=== PATIENT | male | born 1975 | race Caucasian/White ===

== ENCOUNTER 2021-07-13 19:06 | Emergency (ER) | payer BC ==
[2021-07-13 20:51] VITALS: TEMP 98.3
--- NOTE | 2021-07-13 21:41 | XR ---
PROCEDURE: XR wrist complete RT - 3V DATE AND TIME: 07/13/2021 9:11 PM CLINICAL INDICATION: fall on extremity, pain TECHNIQUE: Department protocol COMPARISON: None FINDINGS: There is a distal radius fracture/dislocation, with nearly one shaft width volar displacement of the distal moiety. The distal radius fracture is comminuted and intra-articular, involving both the radio carpal joint and the DRUJ. Nondisplaced ulnar styloid fracture also noted. No other fractures are evident. IMPRESSION: Injuries as above.
--- NOTE | 2021-07-13 21:44 | XR ---
PROCEDURE: XR forearm RT - 2V DATE AND TIME: 07/13/2021 9:11 PM CLINICAL INDICATION: PHH; fall on extremity, pain TECHNIQUE: Department protocol COMPARISON: None FINDINGS: Imaging was obtained from the elbow to the wrist. There is a distal radius fracture/dislocation, with one shaft width volar displacement of the distal moiety, and with nearly 2 cm override. The distal radius fracture is comminuted and intra-articular, involving both the radiocarpal joint and the DRUJ. Nondisplaced ulnar styloid fracture also noted. No other fractures are evident. IMPRESSION: Injuries as above.
[2021-07-13] MEDS ORDERED: PROPOFOL 10 MG/ML 20 ML VIAL IV ONE ×2 (22:19→23:32)
[2021-07-13] MEDS ORDERED: ONDANSETRON 4 MG/2 ML VIAL IVP STA (22:22)
[2021-07-13] MEDS ORDERED: BACITRACIN OINT 1 EACH PACKET TOPICAL ONE (22:22)
[2021-07-13] MEDS ORDERED: MORPHINE SULFATE 4 MG/ML SYRINGE IVP STA (22:22)
[2021-07-13] MEDS ORDERED: DIPH,PERTUS(ACELL)TETVAC-LF 0.5 ML VIAL IM ONE (22:22)
--- NOTE | 2021-07-13 23:39 | ED ---
Fall HPI <Melvin Peña - Last Filed: 07/13/21 23:40> - General Source: patient Mode of arrival: ambulatory <Phoebe Flower - Last Filed: 07/14/21 03:01> - General Chief Complaint: Fall Stated Complaint: Wrist Injury Time Seen by Provider: 07/13/21 22:01 - History of Present Illness Initial Comments: 45 year-old male patient presents to the emergency department for evaluation of right wrist pain. Patient states he was playing pickle ball when he tripped and fell onto his arm. States injury occurred around 5pm. He denies hitting his head or losing consciousness. Denies any neck or back pain. States his wrist became swollen immediately. He denies any numbness or tingling to the hand. Denies elbow or shoulder pain. Denies taking any medication for pain. Patient denies any headache, chest pain, shortness of breath, dizziness, weakness, abdominal pain, nausea, vomiting, or difficulties with bowel movements or urination. (Phoebe Flower) - Related Data Previous Rx's Medication Instructions Recorded Acetaminophen-Codeine 300-30mg 1 tab PO Q6H PRN #12 tablet 07/14/21 [Tylenol #3] Allergies Allergy/AdvReac Type Severity Reaction Status Date / Time No Known Allergies Allergy Verified 07/13/21 20:51 Review of Systems ROS Other: All systems not noted in ROS Statement are negative. <Melvin Peña - Last Filed: 07/13/21 23:40> ROS Other: All systems not noted in ROS Statement are negative. <Phoebe Flower - Last Filed: 07/14/21 03:01> ROS Statement: Those systems with pertinent positive or pertinent negative responses have been documented in the HPI. Past Medical History Past Medical History: No Reported History History of Any Multi-Drug Resistant Organisms: None Reported Past Surgical History: No Surgical Hx Reported Past Psychological History: No Psychological Hx Reported Smoking Status: Never smoker Past Alcohol Use History: None Reported Past Drug Use History: None Reported <Phoebe Flower - Last Filed: 07/14/21 03:01> General Exam General appearance: alert, in no apparent distress, other (This is a well- developed, well-nourished adult male patient in no acute distress. Vital signs upon presentation are temperature 98.3F, pulse 79, respirations 18, blood pressure 192/97, pulse ox 98% on room air.) Neck exam: Present: normal inspection, full ROM, other (Nontender, no step-off, no deformity to firm midline palpation of the posterior cervical spine. Full range of motion without pain or limitation.). Absent: tenderness, meningismus, lymphadenopathy Respiratory exam: Present: normal lung sounds bilaterally. Absent: respiratory distress, wheezes, rales, rhonchi, stridor Cardiovascular Exam: Present: regular rate, normal rhythm, normal heart sounds. Absent: systolic murmur, diastolic murmur, rubs, gallop, clicks GI/Abdominal exam: Present: soft, normal bowel sounds. Absent: distended, tenderness, guarding, rebound, rigid Extremities exam: Present: full ROM, tenderness (distal radius and ulna), normal capillary refill, other (Soft tissue swelling right wrist. Superficial abrasion right dorsal wrist over ulnar region. Skin is otherwise pink, warm, dry. Cap refill less than 3 seconds. Radial pulses 2+.). Absent: normal inspection, pedal edema, joint swelling, calf tenderness Back exam: Present: normal inspection, other (Nontender, no step-off, no deformity to firm midline palpation of the thoracic and lumbar vertebrae. Full range of motion without pain or limitation.). Absent: vertebral tenderness Neurological exam: Present: alert, oriented X3, CN II-XII intact Psychiatric exam: Present: normal affect, normal mood Skin exam: Present: warm, dry, intact, normal color. Absent: rash <Phoebe Flower M - Last Filed: 07/14/21 03:01> Course Vital Signs 07/13/21 07/13/21 07/13/21 20:48 22:59 23:25 Temperature 98.3 F Pulse Rate 79 89 96 Respiratory 18 18 18 Rate Blood Pressure 192/97 153/84 157/85 O2 Sat by Pulse 98 98 97 Oximetry 07/13/21 07/13/21 07/13/21 23:30 23:32 23:35 Temperature Pulse Rate 91 89 90 Respiratory 16 18 16 Rate Blood Pressure 148/88 151/83 144/92 O2 Sat by Pulse 100 100 100 Oximetry 07/13/21 07/13/21 07/14/21 23:38 23:43 00:00 Temperature Pulse Rate 90 92 91 Respiratory 16 20 16 Rate Blood Pressure 145/98 148/85 138/79 O2 Sat by Pulse 100 95 95 Oximetry 07/14/21 07/14/21 07/14/21 00:15 00:30 00:48 Temperature Pulse Rate 89 90 81 Respiratory 18 18 18 Rate Blood Pressure 150/101 153/76 150/85 O2 Sat by Pulse 95 95 97 Oximetry Procedures - Procedural Sedation Procedural Sedation Start Time: 23:31 Procedural Sedation Stop Time: 23:40 ASA Class: I Mallampati Airway Score: 3 Preparation: cardiac specialist applied, pulse oximeter, capnometry used, supplemental O2 applied, reversal agents at bedside, suction/airway equipment at bedside, IV secured IV Propofol Dose (mgs): 200 Complications: none Patient Tolerated Procedure: well <Melvin Peña - Last Filed: 07/13/21 23:40> - [place] Protocol (Time Out) Procedure Performed:: R wrist closed reduction with concious sedation Performing Provider: Melvin Peña Nurse: Sylvia Dale Patient Identification (2 identifiers required): Chart, Verbal, Arm Band, Name, Birthdate Patient/Legal Fire Prevention Officer has Confirmed: Identity, Site, Procedure, Consent Site: R wrist Site Marked: Yes Site Verified With Patient/Guardian: Yes Final Confirmation: Procedure, Site, Patient Position, Confirmed w/Provider - Orthopedic Fracture Reduction Fracture #1 Consent Obtained: written consent Side: right Fracture Reduction Location: radius, ulna Analgesia: procedural sedation Technique: direct manipulation, traction/counter-traction Post Reduction X-rays Demonstrate: other (improved alignment) Post-Reduction Neuro Exam: intact, no change Post-Reduction Vascular Exam: intact, no change Splint Applied: Yes Patient Tolerated Procedure: well, no complications - Orthopedic Splinting/Casting Injury #1 Side: right Upper Extremity Injury Location: wrist Upper Extremity Immobilizer: sugar tong splint, Cb wrap, synthetic pre-padded splint - Procedural Sedation Indications: fracture/dislocation reduction <Phoebe Flower - Last Filed: 07/14/21 03:01> - Orthopedic Fracture Reduction Fracture #1 Additional Comments: Procedure performed by my attending Dr. Peña. (Phoebe Flower) - Orthopedic Splinting/Casting Injury #1 Additional Comments: Neurovascular status intact after splint application. Skin to the hand is pink, warm, dry. Cap refill less than 3 seconds. Radial pulses 2+. Patient denies numbness or tingling. (Phoebe Flower) - Procedural Sedation Additional Comments: Total of 200 mg propofol used initially 103 mg followed by 70 mg patient did tolerate this well he was awake alert oriented 3, final evaluation (Melvin Peña) Medical Decision Making - Radiology Data Radiology results: report reviewed, image reviewed <Phoebe Flower - Last Filed: 07/14/21 03:01> - Medical Decision Making 45-year-old male patient presents to the emergency department today for evaluation of right wrist injury. Physical examination did reveal significant soft tissue swelling, somewhat deformed right wrist. There was an abrasion noted to the ulnar aspect, this is superficial and not an open fracture. X-rays were obtained and did reveal a fracture dislocation of the right distal radius and ulna. Closed reduction with conscious sedation was performed by seth easley ttinkki Peña. Splint was applied. Patient did arouse from anesthesia without any trouble. He is alert and oriented. Be discharged follow-up with hair specialist for further evaluation as soon as possible. Return parameters were discussed in detail. He verbalizes understanding and agrees this plan. Attending is Dr. Peña. (Phoebe Flower) - Radiology Data 3 views of the right wrist are obtained. Report was reviewed in its entirety. Impression by Dr. Isadora Turner shows distal radius fracture dislocation, radius fracture is comminuted and intra-articular. Nondisplaced ulnar styloid fracture. 2 views of the right forearm are obtained. Report was reviewed in its entirety. Impression by Dr. Isadora Turner redemonstrates wrist fractures. Right wrist x-rays obtained. For postreduction purposes, there is improved anatomic position of the fracture fragments compared to initial exam. (Phoebe Flower) Disposition <Melvin Peña - Last Filed: 07/13/21 23:40> Is patient prescribed a controlled substance at d/c from ED?: No Time of Disposition: 00:36 <Phoebe Flower - Last Filed: 07/14/21 03:01> Clinical Impression: Closed fracture of right distal radius and ulna Disposition: HOME SELF-CARE Condition: Good Instructions (If sedation given, give patient instructions): Wrist Fracture in Adults (ED) Additional Instructions: Rest, ice, elevate the arm. Do not remove splint until seen by orthopedics. Call the hair specialist in the morning for an appointment. Return to the emergency department immediately for any new, worsening, or concerning symptoms. Prescriptions: Acetaminophen-Codeine 300-30mg [Tylenol #3] 1 tab PO Q6H PRN #12 tablet PRN Reason: Pain Referrals: None,Stated [Primary Care Provider] - 1-2 days Harshil Booker MD [STAFF PHYSICIAN] - 1-2 days
--- NOTE | 2021-07-14 00:20 | XR ---
EXAMINATION TYPE: XR wrist limited RT DATE OF EXAM: 07/13/2021 COMPARISON: Today HISTORY: Reduction TECHNIQUE: 2 views FINDINGS: There is transverse fracture distal radial metaphysis. There is ulnar styloid process fract ure. There is 7 mm anterior displacement of the radius distal fragment. There is no significant displ acement ulnar styloid process fracture. There is no dislocation. Carpal bones are intact. IMPRESSION: There is improved anatomic position of the fracture fragments compared to initial exam.
[2021-07-14] MEDS ORDERED: ACET/COD 300 MG/30 MG STARTER PACK 6 TAB BTL PO STA (00:36)
[2021-07-14 00:43] VITALS: RESP 18
[2021-07-14 00:49] VITALS: BP 150/85; PULSE 81
== END 2021-07-14 00:55 | disposition home or self-care (01) ==
LOC: EC 19:06
DX: S52.571A Other intraarticular fracture of lower end of right radius, initial encounter for closed fracture (principal); S52.614A Nondisplaced fracture of right ulna styloid process, initial encounter for closed fracture; Z23 Encounter for immunization; W01.0XXA Fall on same level from slipping, tripping and stumbling without subsequent striking against object, initial encounter; Y93.89 Activity, other specified
CPT/HCPCS: 73090; 73100; 73110; 90715; 99283; 25605; 99152; 96374; 96375; 90471; J2270; J2405; J2704

== ENCOUNTER → 2021-07-19 | Outpatient (CLI) | payer BC ==
--- NOTE | 2021-07-19 14:36 | CT ---
EXAMINATION TYPE: CT wrist RT wo con DATE OF EXAM: 07/19/2021 COMPARISON: 07/13/2021 plain film HISTORY: Fracture right wrist CT DLP: 121.0 mGycm Automated exposure control for dose reduction was used. Contrast: None Technique: Axial images 0.5 mm thick sections. Reconstructed images in the coronal plane. Three-D rec onstructed images performed by the technologist on separate computer are reviewed. FINDINGS: There is an impacted fracture of the distal metaphyseal radius with intra-articular extension. Fractu re fragments extend anterior and posterior to the fracture site. Intra-articular extension is also ev ident from the medial metaphyseal radius. There is an avulsion of the ulnar styloid. There is some prominence of the scapholunate space measuring 0.4 cm. Scapholunate disassociation bein g considered. This could be evaluated with MRI. Cyst is within the lunate. Carpal bones otherwise sudhakar ear intact. IMPRESSION: 1. IMPACTED COMMINUTED FRACTURE DISTAL METAPHYSEAL RADIUS WITH INTRA-ARTICULAR EXTENSION. THERE IS SO ME DIASTASES OF THE DISTAL FRACTURE FRAGMENTS AT THE ARTICULAR SURFACE. 2. ULNAR STYLOID AVULSION. 3. SCAPHOLUNATE DISASSOCIATION SHOULD BE CONSIDERED. THIS COULD BE EVALUATED WITH MRI.
== END | disposition home or self-care (01) ==
LOC: RADCTMAIN 07:52
PROVIDERS: ATTEND Orthopaedic Surgery
DX: S52.611A Displaced fracture of right ulna styloid process, initial encounter for closed fracture (principal); S52.571A Other intraarticular fracture of lower end of right radius, initial encounter for closed fracture; X58.XXXA Exposure to other specified factors, initial encounter